=== PATIENT | female | born 1985 | race Caucasian/White ===

== ENCOUNTER 2017-09-05 03:54 | Emergency (ER) | payer BC | END 2017-09-05 10:05 | disposition home or self-care (01) | LOC: M ED 03:54 | DX: S50.851A Superficial foreign body of right forearm, initial encounter (principal); W45.8XXA Other foreign body or object entering through skin, initial encounter; Y92.9 Unspecified place or not applicable; Y93.89 Activity, other specified; Y99.9 Unspecified external cause status; Z86.19 Personal history of other infectious and parasitic diseases; M41.9 Scoliosis, unspecified; F17.200 Nicotine dependence, unspecified, uncomplicated | CPT/HCPCS: 73090 ==